=== PATIENT | female | born 1990 | race Caucasian/White ===

== ENCOUNTER → 2018-11-04 | Outpatient (CLI) | payer BC ==
--- NOTE | 2018-11-04 15:51 | US ---
EXAMINATION TYPE: US venous doppler duplex LE LT DATE OF EXAM: 11/04/2018 3:27 PM COMPARISON: NONE CLINICAL HISTORY: M79.662 pain in Left lower extremity. Pain left leg x 6 days. Patient 21 weeks preg nant. SIDE PERFORMED: Left TECHNIQUE: The lower extremity deep venous system is examined utilizing real time linear array sonog kary with graded compression, doppler sonography and color-flow sonography. VESSELS IMAGED: External Iliac Vein (EIV) Common Femoral Vein Deep Femoral Vein Greater Saphenous Vein * Femoral Vein Popliteal Vein Small Saphenous Vein * Proximal Calf Veins (* superficial vessels) Left Leg: Negative for DVT No evidence of DVT in the left lower extremity. IMPRESSION: No evidence for DVT at this time.
== END | disposition home or self-care (01) ==
LOC: RADUSWWP 14:46
PROVIDERS: ATTEND Obstetrics & Gynecology
DX: O99.89 Other specified diseases and conditions complicating pregnancy, childbirth and the puerperium (principal); M79.662 Pain in left lower leg; Z3A.21 21 weeks gestation of pregnancy

== ENCOUNTER 2019-02-15 16:12 | Emergency (ER) | payer BC, OTHER ==
[2019-02-15 16:25] VITALS: RESP 18
--- NOTE | 2019-02-15 16:46 | ED ---
Abdominal Pain HPI - General Chief Complaint: Chest Pain Stated Complaint: indigestion, 36 weeks Time Seen by Provider: 02/15/19 16:46 Source: patient, RN notes reviewed, old records reviewed Mode of arrival: ambulatory Limitations: no limitations - History of Present Illness Initial Comments: This is a 28-year-old female the ER for evaluation she presents today for evaluation of abdominal pain and . She does have nausea no vomiting no history of gallbladder disease no history of abdominal surgery that significant. No recent travel history or sick contacts, no current diarrhea. MD Complaint: abdominal pain -: hour(s) Location: periumbilical, epigastric Radiation: epigastric Migration to: no migration Severity: mild Severity scale (1-10): 3 Quality: aching Consistency: constant Improves With: nothing Worsens With: nothing Associated Symptoms: nausea - Related Data Home Medications Medication Instructions Recorded Confirmed 114/Iron A-G/Folate 1 1 tab PO DAILY 09/10/18 09/10/18 [Prenate Elite Tablet] Allergies Allergy/AdvReac Type Severity Reaction Status Date / Time bee venom protein (honey bee) Allergy Rash/Hives Verified 02/15/19 16:25 Review of Systems ROS Statement: Those systems with pertinent positive or pertinent negative responses have been documented in the HPI. ROS Other: All systems not noted in ROS Statement are negative. Past Medical History Past Medical History: No Reported History History of Any Multi-Drug Resistant Organisms: None Reported Past Surgical History: No Surgical Hx Reported Past Anesthesia/Blood Transfusion Reactions: No Reported Reaction Past Psychological History: No Psychological Hx Reported Smoking Status: Never smoker Past Alcohol Use History: None Reported Past Drug Use History: None Reported General Exam Limitations: no limitations General appearance: alert, in no apparent distress Head exam: Present: atraumatic, normocephalic, normal inspection Eye exam: Present: normal appearance, PERRL, EOMI. Absent: scleral icterus, conjunctival injection, periorbital swelling ENT exam: Present: normal exam, mucous membranes moist Neck exam: Present: normal inspection. Absent: tenderness, meningismus, lymphadenopathy Respiratory exam: Present: normal lung sounds bilaterally. Absent: respiratory distress, wheezes, rales, rhonchi, stridor Cardiovascular Exam: Present: regular rate, normal rhythm, normal heart sounds. Absent: systolic murmur, diastolic murmur, rubs, gallop, clicks GI/Abdominal exam: Present: soft, normal bowel sounds. Absent: distended, tende rness, guarding, rebound, rigid Extremities exam: Present: normal inspection, full ROM, normal capillary refill. Absent: tenderness, pedal edema, joint swelling, calf tenderness Back exam: Present: normal inspection Neurological exam: Present: alert, oriented X3, CN II-XII intact Psychiatric exam: Present: normal affect, normal mood Skin exam: Present: warm, dry, intact, normal color. Absent: rash Course Vital Signs 02/15/19 02/15/19 16:20 19:01 Temperature 98.1 F 97.7 F Pulse Rate 81 80 Respiratory 18 18 Rate Blood Pressure 160/91 133/74 O2 Sat by Pulse 98 99 Oximetry Medical Decision Making - Medical Decision Making Refusing to ER with nonspecific abdominal pain. No tenderness. Labwork is unremarkable currently. Patient can be discharged home - Lab Data Result diagrams: 02/15/19 17:10 02/15/19 17:10 Lab Results 02/15/19 02/15/19 02/15/19 Range/Units 17:10 17:10 17:10 WBC 12.4 H (3.8-10.6) k/uL RBC 4.51 (3.80-5.40) m/uL Hgb 13.4 (11.4-16.0) gm/dL Hct 39.5 (34.0-46.0) % MCV 87.6 (80.0-100.0) fL MCH 29.6 (25.0-35.0) pg MCHC 33.8 (31.0-37.0) g/dL RDW 14.5 (11.5-15.5) % Plt Count 214 (150-450) k/uL Neutrophils % 84 % Lymphocytes % 10 % Monocytes % 4 % Eosinophils % 0 % Basophils % 0 % Neutrophils # 10.5 H (1.3-7.7) k/uL Lymphocytes # 1.3 (1.0-4.8) k/uL Monocytes # 0.4 (0-1.0) k/uL Eosinophils # 0.0 (0-0.7) k/uL Basophils # 0.0 (0-0.2) k/uL Sodium 137 (137-145) mmol/L Potassium 4.0 (3.5-5.1) mmol/L Chloride 107 (98-107) mmol/L Carbon Dioxide 19 L (22-30) mmol/L Anion Gap 11 mmol/L BUN 7 (7-17) mg/dL Creatinine 0.41 L (0.52-1.04) mg/dL Est GFR (CKD-EPI)AfAm >90 (>60 ml/min/1.73 sqM) Est GFR (CKD-EPI)NonAf >90 (>60 ml/min/1.73 sqM) Glucose 102 H (74-99) mg/dL Calcium 9.6 (8.4-10.2) mg/dL Total Bilirubin 0.4 (0.2-1.3) mg/dL AST 25 (14-36) U/L ALT 26 (9-52) U/L Alkaline Phosphatase 111 (38-126) U/L Creatine Kinase 95 (30-135) U/L Total Protein 6.5 (6.3-8.2) g/dL Albumin 3.6 (3.5-5.0) g/dL Amylase 49 (30-110) U/L Lipase 51 (23-300) U/L Urine Color Yellow Urine Appearance Cloudy H (Clear) Urine pH 6.0 (5.0-8.0) Ur Specific [place] 1.021 (1.001-1.035) Urine Protein 1+ H (Negative) Urine Glucose (UA) Negative (Negative) Urine Ketones 4+ H (Negative) Urine Blood Negative (Negative) Urine Nitrite Negative (Negative) Urine Bilirubin Negative (Negative) Urine Urobilinogen <2.0 (<2.0) mg/dL Ur Leukocyte Esterase Negative (Negative) Urine RBC <1 (0-5) /hpf Urine WBC 3 (0-5) /hpf Ur Squamous Epith Cells 8 H (0-4) /hpf Amorphous Sediment Rare H (None) /hpf Urine Bacteria Rare H (None) /hpf Hyaline Casts 1 (0-2) /lpf Urine Mucus Few H (None) /hpf Disposition Clinical Impression: Abdominal pain Disposition: HOME SELF-CARE Condition: Good Instructions (If sedation given, give patient instructions): Abdominal Pain (ED), Abdominal Pain in (ED) Is patient prescribed a controlled substance at d/c from ED?: No Referrals: Neal Terry MD [Primary Care Provider] - 1-2 days
[2019-02-15] MEDS ORDERED: SODIUM CHLORIDE 0.9% 1,000 ML IV STA ×3 (16:50→17:52)
[2019-02-15] MEDS ORDERED: ONDANSETRON 4 MG/2 ML VIAL IVP STA (16:50)
[2019-02-15 17:29] LABS: Basophils % (A) 0 %; Eosinophils % (A) 0 %; HCT 39.5 % (34.0-46.0); HGB 13.4 gm/dL (11.4-16.0); Lymphocytes # (A) 1.3 k/uL (1.0-4.8); Lymphocytes % (A) 10 %; MCH 29.6 pg (25.0-35.0); MCHC 33.8 g/dL (31.0-37.0); MCV 87.6 fL (80.0-100.0); Mean Platelet Volume 8.3; Monocytes # (A) 0.4 k/uL (0-1.0); Monocytes % (A) 4 %; Neutrophils # (A) 10.5 k/uL (1.3-7.7); Neutrophils % (A) 84 %; Platelet Count 214 k/uL (150-450); RBC 4.51 m/uL (3.80-5.40); RDW 14.5 % (11.5-15.5); WBC 12.4 k/uL (3.8-10.6)
[2019-02-15 17:32] LABS: Amorphous Sediment,Urine Rare /hpf; Appearance,Urine Cloudy (Clear); Bacteria,Urine Rare /hpf; Bilirubin,Urine Negative (Negative); Blood,Urine Negative (Negative); Color,Urine Yellow; Glucose,Urine (UA) Negative (Negative); Hyaline Casts,Urine 1 /lpf (0-2); Ketones,Urine 4+ (Negative); Leukocyte Esterase,Urine Negative (Negative); Mucus,Urine Few /hpf; Nitrite,Urine Negative (Negative); Protein,Urine 1+ (Negative); RBC,Urine <1 /hpf (0-5); Specific Gravity,Urine 1.021 (1.001-1.035); Squamous Epithelial Cell,Urine 8 /hpf (0-4); Urobilinogen,Urine <2.0 mg/dL (<2.0); WBC,Urine 3 /hpf (0-5)
[2019-02-15 17:38] LABS: ALT 26 U/L (9-52); AST 25 U/L (14-36); African American GFR (CKD) >90 (>60 ml/min/1.73 sqM); Albumin 3.6 g/dL (3.5-5.0); Alkaline Phosphatase 111 U/L (38-126); Amylase 49 U/L (30-110); Anion Gap 11 mmol/L; Blood Urea Nitrogen 7 mg/dL (7-17); Calcium 9.6 mg/dL (8.4-10.2); Carbon Dioxide 19 mmol/L (22-30); Chloride 107 mmol/L (98-107); Creatine Kinase 95 U/L (30-135); Glucose 102 mg/dL (74-99); Lipase 51 U/L (23-300); Sodium 137 mmol/L (137-145); Total Bilirubin 0.4 mg/dL (0.2-1.3); Total Protein 6.5 g/dL (6.3-8.2)
[2019-02-15 19:02] VITALS: BP 133/74; PULSE 80; TEMP 97.7
== END 2019-02-15 19:02 | disposition home or self-care (01) ==
LOC: EC 16:12
DX: O99.89 Other specified diseases and conditions complicating pregnancy, childbirth and the puerperium (principal); R10.33 Periumbilical pain; R10.13 Epigastric pain; R11.0 Nausea; Z91.018 Allergy to other foods; Z53.8 Procedure and treatment not carried out for other reasons; Z3A.36 36 weeks gestation of pregnancy
CPT/HCPCS: 36415; 80053; 81001; 82150; 82550; 83690; 85025; 87086; 96360; 99285

== ENCOUNTER 2019-03-08 06:00 | Inpatient (IN) | payer BC, OTHER ==
[2019-03-08] MEDS ORDERED: CARBOPROST TROMETHAMINE 250 MCG/ML 1 ML AMP IM PRN (06:15)
[2019-03-08] MEDS ORDERED: OXYTOCIN 30 UNITS/500 ML NS 30 UNIT in SALINE 1 500ML.BAG IV SCH (06:15)
[2019-03-08] MEDS ORDERED: METHYLERGONOVINE 0.2 MG/ML 1 ML AMP IM PRN (06:15)
[2019-03-08] MEDS ORDERED: OXYTOCIN 10 UNIT/ML 1 ML VIAL IM PRN (06:15)
[2019-03-08] MEDS ORDERED: LIDOCAINE 0.5% (PF) 5 MG/ML (50 ML SDV) SQ PRN (06:15)
[2019-03-08] MEDS ORDERED: TERBUTALINE 1 MG/ML VIAL SQ PRN (06:15)
[2019-03-08 06:26] VITALS: BMI 50.3
[2019-03-08 06:43] LABS: Glucose,Whole Blood 88 mg/dL (75-99)
[2019-03-08] MEDS: LACTATED RINGERS 1,000 ML IV SCH ×4 (06:47→18:27)
[2019-03-08 06:58] LABS: Basophils # (A) 0.1 k/uL (0-0.2); Basophils % (A) 1 %; Eosinophils # (A) 0.1 k/uL (0-0.7); Eosinophils % (A) 1 %; HCT 37.1 % (34.0-46.0); HGB 12.8 gm/dL (11.4-16.0); Lymphocytes # (A) 1.9 k/uL (1.0-4.8); Lymphocytes % (A) 18 %; MCH 30.2 pg (25.0-35.0); MCHC 34.5 g/dL (31.0-37.0); MCV 87.5 fL (80.0-100.0); Monocytes # (A) 0.5 k/uL (0-1.0); Monocytes % (A) 5 %; Neutrophils # (A) 7.6 k/uL (1.3-7.7); Neutrophils % (A) 74 %; Platelet Count 202 k/uL (150-450); RBC 4.24 m/uL (3.80-5.40); RDW 13.6 % (11.5-15.5); WBC 10.4 k/uL (3.8-10.6)
--- NOTE | 2019-03-08 07:55 | P.HPOB ---
History of Present Illness H&P Date: 03/08/19 This is a 28-year-old white female 1 para 0 EDC 03/15/2019 at 39 weeks gestation. Patient presents for induction for suspected large for gestational age fetus. Ultrasound in the office is revealing measurements greater than 99th percentile, along with greater than 99% abdominal circumference. Patient has a history of gestational diabetes, blood sugar this morning 88. I've discussed with the patient and her in great detail the risk of vaginal , that the option for primary section is certainly to be considered for the potential of shoulder dystocia in the second stage of labor. They are strongly wishing a trial of labor. She denies vaginal bleeding or fluid leakage. Past medical history is unremarkable. Past surgical history is negative. Current medications vitamins daily. ALLERGIES none known. Family history significant for spinal bifida occulta. Social history patient is single, she is employed, she has never been a smoker, she denies alcohol or drug use. history is significant for blood type B positive, rubella status [facility]. VDRL testing, urine culture, hepatitis B surface antigen, HIV testing, gonorrhea and chlamydia cultures all negative. One-hour Glucola 23, patient has done doing careful home blood sugar monitoring. Group B strep cultures negative. On exam she is 5 foot 2 inches, 275 pounds, initial blood pressure elevated at 179/92, repeat blood pressures 130s over 80s. The general physical exam is wi thin normal limits. 1-2+ peripheral edema, normal reflexes. Cervix is 2-3 cm dilated, 80% effaced, -2 station, vertex presentation. Attempted artificial amniorrhexis is only productive of mucus. I will attempt was again in short order. heart rate is consistent with reactive NST, baseline 140s. Impression: 39 week intrauterine , gestational diabetes, suspected macrosomic fetus. Patient and her partner strongly wishing trial of labor, aware of the risks of labor and shoulder dystocia. Plan oxytocin per hospital protocol. I will once again attempt artificial amniorrhexis. Close maternal and surveillance. Pending progress of the first stage of labor, continued consideration for section as appropriate. Review of Systems Constitutional: Reports as per HPI Past Medical History Past Medical History: No Reported History Additional Past Medical History / Comment(s): Diet controlled gestational diabetes History of Any Multi-Drug Resistant Organisms: None Reported Past Surgical History: No Surgical Hx Reported Past Anesthesia/Blood Transfusion Reactions: No Reported Reaction Past Psychological History: No Psychological Hx Reported Smoking Status: Never smoker Past Alcohol Use History: None Reported Past Drug Use History: None Reported - Past Family History Mother Family Medical History: No Reported History Medications and Allergies Home Medications Medication Instructions Recorded Confirmed Type 114/Iron A-G/Folate 1 1 tab PO DAILY 09/10/18 03/08/19 History [Prenate Elite Tablet] Allergies Allergy/AdvReac Type Severity Reaction Status Date / Time bee venom protein (honey bee) Allergy Rash/Hives Verified 03/08/19 06:14 Exam Vital Signs Temp Pulse Resp BP Pulse Ox 03/08/19 06:13 97.6 F 91 16 179/92 97 Intake and Output 03/07/19 03/08/19 03/08/19 22:59 06:59 14:59 Other: Weight 124.738 kg See dictation under HPI please Results Result Diagrams: 03/08/19 06:42 Assessment and Plan Assessment: 39 week intrauterine , gestational diabetes, maternal obesity, macrosomia. Patient wishing trial of labor, where of the risks of shoulder dystocia. Plan: Oxytocin per hospital protocol. Close maternal and surveillance. Time with Patient: Greater than 30
[2019-03-08] MEDS ORDERED: ceFAZolin 3 GM in SODIUM CHLORIDE 0.9% 100 ML IVPB ONE (14:10)
[2019-03-08] MEDS ORDERED: CITRIC ACID-SODIUM CITRATE 15 ML CUP PO ONE (14:10)
[2019-03-08] MEDS ORDERED: ONDANSETRON 4 MG/2 ML VIAL ONE (14:34)
[2019-03-08] MEDS ORDERED: MORPHINE SULFATE (PF) 0.3 MG/0.3 ML SYR ONE (14:34)
[2019-03-08] MEDS ORDERED: NALBUPHINE 10 MG/ML (1 ML AMP) ONE (14:34)
[2019-03-08] MEDS ORDERED: OXYTOCIN 10 UNIT/ML 1 ML VIAL ONE (14:34)
[2019-03-08] MEDS ORDERED: diphenhydrAMINE 50 MG/ML 1 ML VIAL ONE (14:34)
[2019-03-08] MEDS ORDERED: KETOROLAC 30 MG/ML 1 ML VIAL ONE (14:34)
[2019-03-08] MEDS ORDERED: ONDANSETRON 4 MG/2 ML VIAL IVP PRN ×2 (15:12→15:41)
[2019-03-08] MEDS ORDERED: diphenhydrAMINE 50 MG/ML 1 ML VIAL IVP PRN ×3 (15:12→15:41)
[2019-03-08] MEDS ORDERED: NALBUPHINE 10 MG/ML (1 ML AMP) IV PRN (15:12)
[2019-03-08] MEDS ORDERED: HYDROmorphone 1 MG/ML 1 ML SYRINGE IVP PRN (15:12)
[2019-03-08] MEDS ORDERED: NALOXONE 0.4 MG/ML 1 ML VIAL IV PRN ×2 (15:12→15:41)
[2019-03-08] MEDS ORDERED: KETOROLAC 30 MG/ML 1 ML VIAL IVP PRN (15:12)
[2019-03-08] MEDS ORDERED: diphenhydrAMINE 50 MG CAP PO PRN (15:41)
[2019-03-08] MEDS ORDERED: MEASLES-MUMPS-RUBELLA VACC/PF 12,500 UNIT/0.5 ML VIAL SQ ONE (15:41)
[2019-03-08] MEDS ORDERED: METOCLOPRAMIDE 5 MG/ML 2 ML VIAL IVP PRN (15:41)
[2019-03-08] MEDS ORDERED: ACETAMINOPHEN TAB 325 MG TAB PO PRN (15:41)
[2019-03-08] MEDS ORDERED: diphenhydrAMINE 25 MG CAP PO PRN (15:41)
[2019-03-08] MEDS ORDERED: ZOLPIDEM 5 MG TAB PO PRN (15:41)
[2019-03-08] MEDS ORDERED: HYDROcodone/APAP 5-325MG 1 EACH TAB PO PRN (15:41)
--- NOTE | 2019-03-08 15:41 | P.OP ---
Date of Procedure: 03/08/19 Preoperative Diagnosis: Suspected macrosomia, gestational diabetes, arrest of dilatation. Postoperative Diagnosis: Same, 10 lbs. 2 oz. female , 4580 g, nuchal cord 1 Procedure(s) Performed: Primary low transverse section Anesthesia: spinal Surgeon: Roxanna Jack Chef #1: Hector Faith Estimated Blood Loss (ml): 500 IV fluids (ml): 1,000 Urine output (ml): 100 Pathology: other (placenta) Condition: stable Disposition: PACU Indications for Procedure: Arrest of dilatation, non-engaged head, suspected macrosomia Operative Findings: 10 lbs. 2 oz. female , 4580 g, nuchal cord 1. Normal-appearing tubes and ovaries bilaterally. Description of Procedure: Patient is brought to the operating suite where a spinal with Duramorph is placed without difficulty. She's placed in the dorsal supine position with left lateral uterine displacement after prepping of the abdomen, vagina, and perineal bodies. Conti catheter placed to direct drainage. 3 g of Ancef given. The appropriate timeout is performed to assure proper patient and procedural identification. Analgesia is checked and noted to be adequate. A low transverse skin incision is made in this is carried down through the subcutaneous tissue which is approximately 8 cm in depth. Fascia is identified, isolated, and scored bilaterally with curved Hilario scissors. Peritoneum is next identified and incised, there is no bowel or bladder involvement. The disposable ring retractor is placed for very good visualization and exposure. A low transverse uterine incision is made. This is extended bluntly. The 's head is delivered occiput anterior. There is a nuchal cord 1 that is reduced. The shoulders are gently delivered through the incision, patient is officially delivered of a liveborn female at 08/14/2002 hours. Umbilical cord is doubly clamped and ligated. is handed to waiting lithographic press operator where scores of 8 and 9 at one and 5 minutes respectively are given. The placenta delivers manually, it is inspected and noted to be intact with trivascular cord at 08/14/2003 hours. The uterus is then externalized and massaged. Oxytocin is given. Uterus is wiped clean with a sterile sponge to avoid any retained products of conception. The incision is grasped with Santos clamps. The uterus is closed in a two-step fashion. First layer is running locking with 0 Vicryl. Second layer is imbricated with 0 Vicryl. Excellent reapproximation is noted. Tubes and ovaries appear normal to inspection. Abdomen is suctioned with suction on guard and the uterus is gently placed back into the abdominal cavity. Bilateral gutters are inspected and cleaned. The peritoneum is allowed to close by secondary intention. The fascia is closed in a running fashion using 0 Vicryl suture. Subcutaneous tissue is irrigated, noted to be clean and dry. It is reapproximated with 2-0 Vicryl in a running stitch. 4-0 undyed Monocryl issues for final skin closure in a subcuticular manner. Steri-Strips and Mastisol are applied to the wound. Dressing is placed on the abdomen. The uterus is massaged for a small amount of residual blood. Conti is noted to be draining clear urine. Total estimated blood loss 500 mL, fluid replacement in the operating room 100 mL's. Patient is brought back to recovery room in stable condition. She is allowed to begin the bonding experience with her infant and family. weighs 10 lbs. 2 oz. or 4580 g. Blood sugars will be checked appropriately.
[2019-03-08] MEDS: SENNOSIDES-DOCUSATE SODIUM 1 EACH TAB PO SCH (21:24)
[2019-03-08] MEDS: KETOROLAC 30 MG/ML 1 ML VIAL IVP PRN (21:35)
[2019-03-09 07:03] LABS: Basophils # (A) 0.1 k/uL (0-0.2); Basophils % (A) 1 %; Eosinophils # (A) 0.1 k/uL (0-0.7); Eosinophils % (A) 1 %; HCT 34.5 % (34.0-46.0); HGB 11.3 gm/dL (11.4-16.0); Lymphocytes % (A) 17 %; MCH 29.9 pg (25.0-35.0); MCHC 32.9 g/dL (31.0-37.0); Mean Platelet Volume 8.3; Monocytes # (A) 0.4 k/uL (0-1.0); Monocytes % (A) 4 %; Neutrophils # (A) 9.1 k/uL (1.3-7.7); Neutrophils % (A) 77 %; Platelet Count 193 k/uL (150-450); RBC 3.79 m/uL (3.80-5.40); RDW 15.2 % (11.5-15.5); WBC 11.7 k/uL (3.8-10.6)
--- NOTE | 2019-03-09 07:32 | P.PN ---
Subjective Progress Note Date: 03/09/19 Principal diagnosis: Postoperative day #1 Slept well. Pain well managed. No complaints. Objective - Vital Signs Vital signs: Vital Signs Temp 97.7 F 03/09/19 04:00 Pulse 83 03/09/19 04:00 Resp 16 03/09/19 06:00 BP 117/56 03/09/19 04:00 Pulse Ox 98 03/09/19 04:00 Intake & Output 03/08/19 03/09/19 03/09/19 18:59 06:59 18:59 Intake Total 1100 Output Total 600 Balance 1100 -600 Intake: IV 1000 Lactated Ringers 1,000 ml 1000 @ 125 mls/hr IV .Q8H MELY Rx#:[id number] Intake, IV Titration 100 Amount ceFAZolin 3 gm In Sodium 100 Chloride 0.9% 100 ml @ 200 mls/hr IVPB ONCE ONE Rx#:[id number] Output: Urine 600 - Constitutional General appearance: Present: morbidly obese - EENT Eyes: Present: PERRLA ENT: Present: hearing grossly normal - Neck Thyroid: negative: normal size - Respiratory Respiratory: bilateral: CTA - Cardiovascular Rhythm: regular - Gastrointestinal General gastrointestinal: Present: normal bowel sounds - Integumentary Integumentary: Present: normal - Neurologic Neurologic: Present: CNII-XII intact - Musculoskeletal Musculoskeletal: Present: gait normal, strength equal bilaterally - Psychiatric Psychiatric: Present: A&O x's 3, appropriate affect, intact judgment & insight - Labs CBC & Chem 7: 03/09/19 06:25 Labs: Abnormal Lab Results - Last 24 Hours (Table) 03/09/19 Range/Units 06:25 WBC 11.7 H (3.8-10.6) k/uL RBC 3.79 L (3.80-5.40) m/uL Hgb 11.3 L (11.4-16.0) gm/dL Neutrophils # 9.1 H (1.3-7.7) k/uL Assessment and Plan Assessment: doing well post operative day #1 Plan: Advance diet and activity. Likely discharge home tomorrow Time with Patient: Less than 30
[2019-03-09] MEDS: SENNOSIDES-DOCUSATE SODIUM 1 EACH TAB PO SCH ×2 (07:44→19:30)
[2019-03-09] MEDS: KETOROLAC 30 MG/ML 1 ML VIAL IVP PRN (07:45)
--- NOTE | 2019-03-09 09:32 | P.PN ---
Progress Note - Text Progress Note Date: 03/09/19 Patient without complaints. Ambulating without weakness or paresthesia. Pruritis controlled. Pain controlled. A/P POD#1 c-sec with duramorph - doing well
[2019-03-09] MEDS: IBUPROFEN 600 MG TAB PO PRN (19:28)
[2019-03-09 20:40] VITALS: RESP 16
[2019-03-10] MEDS: IBUPROFEN 600 MG TAB PO PRN (08:31)
[2019-03-10] MEDS: SENNOSIDES-DOCUSATE SODIUM 1 EACH TAB PO SCH (08:33)
--- NOTE | 2019-03-10 08:36 | P.DS ---
Providers Date of admission: 03/08/19 06:06 Expected date of discharge: 03/10/19 Attending physician: Roxanna Jack Primary care physician: Neal Terry - Discharge Diagnosis(es) (1) S/P section Current Visit: Yes Status: Acute Hospital Course: The patient is a 28-year-old 1 para 0 admitted at 39-0/7 weeks by good dating parameters perches admitted for induction secondary to an LGA fetus with gestational diabetes during the . On labor and delivery, she had Pitocin started and underwent artificial rupture of membranes for clear fluid. She made minimal progress throughout the morning and early afternoon and was counseled and taken for primary low-transverse section at which time she was delivered of a viable 10 lbs. 2 oz. baby girl with Apgars of 8 at 1 minute and 9 at 5 minutes. Her postoperative course was unremarkable with vital signs remained stable and her temperature was afebrile throughout. She was de emed stable for discharge on postoperative day #2 was discharged home to follow- up in the office in 6 weeks' time routinely. Discharge instructions included calling for any significantly increased bleeding or foul-smelling lochia, significantly increased fever abdominal pain, perineal complaints, breast complaints, incisional complaints, or anything else that concerned her. She is additionally instructed to have nothing in the vagina for at least 6 weeks time to include intercourse and to abstain from any heavy lifting over the same period of time. She was last instructed to do no driving until off of all pain medications or 2 weeks' time, whichever came first. She understood all of her instructions and agrees to follow up as noted above. Maternal blood type is B+ and rubella status is nonimmune. She therefore was to receive the MMR vaccination prior to discharge. Discharge hemoglobin and hematocrit were 11.3 and 34.5 respectively. Procedures: #1. Pitocin induction #2. Gestational diabetes #3. Arrest of dilation #4. Primary low-transverse section Patient Condition at Discharge: Stable Plan - Discharge Summary Discharge Rx Participant: No New Discharge Prescriptions: No Action 114/Iron A-G/Folate 1 [Prenate Elite Tablet] 1 tab PO DAILY Discharge Medication List 114/Iron A-G/Folate 1 [Prenate Elite Tablet] 1 tab PO DAILY 09/10/18 [History] Follow up Appointment(s)/Referral(s): Roxanna Jack MD [STAFF PHYSICIAN] - 2 Weeks Discharge Disposition: HOME SELF-CARE
[2019-03-10 09:46] VITALS: PULSE 81; TEMP 97.1
[2019-03-10 14:53] VITALS: BP 136/80
== END 2019-03-10 14:15 | disposition home or self-care (01) | DRG 788 ==
LOC: 4FBP 06:06
PROVIDERS: ADMIT Obstetrics & Gynecology; ATTEND Obstetrics & Gynecology
PROC: 10D00Z1 Extraction of Products of Conception, Low, Open Approach (ICD-10-PCS; principal; 2019-03-08 06:00)
DX: O36.63X0 Maternal care for excessive fetal growth, third trimester, not applicable or unspecified (principal); O99.214 Obesity complicating childbirth; E66.01 Morbid (severe) obesity due to excess calories; O62.0 Primary inadequate contractions; O69.81X0 Labor and delivery complicated by cord around neck, without compression, not applicable or unspecified; O24.420 Gestational diabetes mellitus in childbirth, diet controlled; O99.72 Diseases of the skin and subcutaneous tissue complicating childbirth; L29.9 Pruritus, unspecified; Z37.0 Single live birth; Z3A.39 39 weeks gestation of pregnancy
CPT/HCPCS: 85025; 86850; 86900; 86901; 88307; 90707; 94760

== ENCOUNTER 2023-05-14 06:28 | Inpatient (IN) | payer BC, OTHER ==
[2023-05-11 14:19] VITALS: BMI 46.0
[2023-05-14] MEDS ORDERED: miSOPROStoL 200 MCG TAB PO PRN (10:20)
[2023-05-14] MEDS ORDERED: TRANEXAMIC 1,000 MG/100ML-NACL 1,000 MG in EMPTY BAG 1 BAG IV PRN (10:20)
[2023-05-14] MEDS ORDERED: OXYTOCIN 10 UNIT/ML 1 ML VIAL IM PRN (10:20)
[2023-05-14] MEDS ORDERED: CITRIC ACID-SODIUM CITRATE 15 ML CUP PO ONE (10:20)
[2023-05-14] MEDS ORDERED: CARBOPROST TROMETHAMINE 250 MCG/ML 1 ML AMP IM PRN (10:20)
[2023-05-14] MEDS ORDERED: METHYLERGONOVINE 0.2 MG/ML 1 ML AMP IM PRN (10:20)
[2023-05-14 10:34] LABS: Glucose,Whole Blood 98 mg/dL (70-110)
[2023-05-14 10:54] LABS: Basophils % (A) 0 %; Eosinophils % (A) 0 %; HCT 36.6 % (34.0-46.0); Lymphocytes # (A) 1.8 k/uL (1.0-4.8); Lymphocytes % (A) 21 %; MCH 27.4 pg (25.0-35.0); MCHC 32.9 g/dL (31.0-37.0); MCV 83.2 fL (80.0-100.0); Mean Platelet Volume 10.1; Monocytes # (A) 0.6 k/uL (0-1.0); Monocytes % (A) 6 %; Neutrophils # (A) 6.2 k/uL (1.3-7.7); Neutrophils % (A) 71 %; Platelet Count 189 k/uL (150-450); RDW 13.6 % (11.5-15.5); WBC 8.8 k/uL (3.8-10.6)
[2023-05-14] MEDS: LACTATED RINGERS 1,000 ML IV SCH ×2 (10:55→11:30)
[2023-05-14] MEDS ORDERED: NALBUPHINE 10 MG/ML (10 ML MDV) ONE (11:54)
[2023-05-14] MEDS ORDERED: MORPHINE SULFATE (PF) 0.3 MG/0.3 ML SYR ONE (11:54)
[2023-05-14] MEDS ORDERED: PHENYLEPHRINE-0.9% NACL SYG 1,000 MCG/10 ML SYRINGE ONE (11:54)
[2023-05-14] MEDS ORDERED: ONDANSETRON 4 MG/2 ML VIAL ONE (11:54)
[2023-05-14] MEDS ORDERED: KETOROLAC 30 MG/ML 1 ML VIAL ONE (11:54)
[2023-05-14] MEDS ORDERED: OXYTOCIN 30 UNITS/500 ML NS BAG IV ONE (11:54)
--- NOTE | 2023-05-14 13:00 | P.HPOB ---
History of Present Illness H&P Date: 05/14/23 Chief Complaint: Scheduled repeat section with bilateral salpingectomy Mr. Cardenas is a 32-year-old at 38 weeks and 6 days with EDC of 05/22/2023 by 8 week ultrasound who presents today for repeat section with bilateral salpingectomy. The has been complicated by pre- gestational diabetes diagnosed on early 3 hour glucose tolerance test. The patient has been co-managed by maternal medicine, although she has had periods of noncompliance with calling in her blood sugars. The blood sugars per the patient have been seemingly well controlled. The fetus was also inspected to be large for gestational age at 32 week ultrasound during which time the fetus measured in the 97th percentile for growth. The patient also has chronic hypertension for which she was started on Procardia 30 mg daily in the last weeks of . The patient has been undergoing surveillance with nonstress tests and growth ultrasounds which have been within normal limits. Obstetric history: 1 [facility] Maternal work-up: Blood type B positive, antibody negatie, rubella immune, HBsAg negative, VDRL non-reactive, HIV negative, gonorrhea negative, chlamydia negative, GBS negative. Past medical history: cHTN Past surgical history: C/S x1 Past Medical History Past Medical History: No Reported History Additional Past Medical History / Comment(s): gestational diabetes History of Any Multi-Drug Resistant Organisms: None Reported Past Surgical History: Section Past Anesthesia/Blood Transfusion Reactions: No Reported Reaction Past Psychological History: No Psychological Hx Reported Smoking Status: Never smoker Past Alcohol Use History: None Reported Past Drug Use History: None Reported - Past Family History Mother Family Medical History: No Reported History Medications and Allergies Home Medications Medication Instructions Recorded Confirmed Type NIFEdipine XL [Procardia Xl] 30 mg PO DAILY 05/11/23 05/14/23 History metFORMIN HCL 500 mg PO HS 05/11/23 05/14/23 History Allergies Allergy/AdvReac Type Severity Reaction Status Date / Time bee venom protein (honey bee) Allergy Rash/Hives Verified 05/14/23 10:18 Exam Vital Signs Temp Pulse Resp BP Pulse Ox 05/14/23 10:13 97.1 F L 86 18 159/79 98 Intake and Output 05/13/23 05/14/23 05/14/23 22:59 06:59 14:59 Other: # Voids 1 Weight 114.305 kg This physical exam is performed. This is a in no apparent distress. Breathing is non-labored. Abdomen is gravid and non-tender. Extremities are non-tender and non-edematous. heart tones are reactive and reassuring on non-stress test and tocometer is not graphing contractions. Results Result Diagrams: 05/14/23 10:30 Assessment and Plan Assessment: 32 year old at 38 weeks and 6 days presenting for repeat sec tion with bilateral salpingectomy, complicated by A1GDM and cHTN Plan: Admit, nothing by mouth, maintenance IV fluids, section protocol with IV antibiotics Time with Patient: Less than 30
[2023-05-14] MEDS ORDERED: METOCLOPRAMIDE 5 MG/ML 2 ML VIAL IVP PRN (13:06)
[2023-05-14] MEDS ORDERED: diphenhydrAMINE 50 MG CAP PO PRN (13:06)
[2023-05-14] MEDS ORDERED: diphenhydrAMINE 50 MG/ML 1 ML VIAL IVP PRN ×2 (13:06)
[2023-05-14] MEDS ORDERED: ONDANSETRON 4 MG/2 ML VIAL IVP PRN (13:06)
[2023-05-14] MEDS ORDERED: NALOXONE 0.4 MG/ML 1 ML VIAL IV PRN (13:06)
[2023-05-14] MEDS ORDERED: SIMETHICONE 80 MG CHEWABLE PO PRN (13:06)
[2023-05-14] MEDS ORDERED: LANOLIN CREAM 5 GM TUBE TOPICAL PRN (13:06)
[2023-05-14] MEDS ORDERED: diphenhydrAMINE 25 MG CAP PO PRN (13:06)
[2023-05-14] MEDS ORDERED: ZOLPIDEM 5 MG TAB PO PRN (13:06)
--- NOTE | 2023-05-14 13:06 | P.OP ---
Date of Procedure: 05/14/23 Preoperative Diagnosis: 1. Term IUP at 38 weeks and 6 days 2. Diet-controlled gestational diabetes 3. Chronic Hypertension 4. History of prior section 5. Large for gestational age fetus 6. Desires permanent sterilization Postoperative Diagnosis: Same Procedure(s) Performed: Repeat Section with Bilateral Salpingectomy Implants: None Anesthesia: spinal Surgeon: Sharon Parnell Nailing Machine Operator Automatic #1: Cyndee Fam Estimated Blood Loss (ml): 530 IV fluids (ml): 700 Urine output (ml): 200 Pathology: none sent Condition: stable Disposition: floor Indications for Procedure: This is a 32-year-old 001 at 38 weeks and 6 days with a complicated by gestational diabetes diet controlled and chronic hypertension on antihypertensives who presents today for repeat section. The risks, benefits, and alternatives to section were discussed with the patient including risk of bleeding, infection, damage to surrounding structures includ ing bladder/bowels/ureters, and post-operative VTE. The patient understands these risks and desires to proceed with section. Operative Findings: Colorless amniotic fluid. in right occiput transverse presentation, weighing 10 pounds and 9 ounces (4780 grams), with apgars of 9 and 9 at one and five minutes respectively. Normal appearing uterus, bilateral fallopian tubes, and ovaries. Moderate adhesive disease in the pelvis. Description of Procedure: The patient was taken to the operating room where spinal anesthesia was found to be adequate. 2 grams of Ancef were given for infection prophylaxis. She was prepared and draped in the dorsal supine position with a leftward tilt. A Pfannenstiel skin incision was made with the scalpel. The incision was carried down to the fascia with a bovie. The fascia was incised and extended laterally with Hilario scissors. The superior aspect of the fascia was grasped with Curry clamps. The underlying rectus muscle was dissected off sharply with Hilario scissors. In a similar fashion, the inferior aspect of the fascia was elevated with Curry clamps and the rectus muscle and pyramidalis were dissected off. Excellent hemostasis was achieved with the bovie. The rectus muscle was in the midline down to the level of the pubic symphysis. Pre- peritoneal fatty tissue was bluntly dissected to expose the peritoneum. The peritoneum was found to be free of adherent bowel and entered sharply with Hilario scissors. The peritoneal incision was extended superiorly and inferiorly to the bladder reflection with good visualization of the bladder. The bladder blade was inserted and vesicouterine peritoneum was identified. Intraabdominal survey revealed scant, clear peritoneal fluid and the thinned-out lower uterine segment. The bladder blade was repositioned to keep the bladder out of the operative field. The lower uterine segment was incised with a scalpel. The amniotic sac was ruptured with an Allis clamp and clear fluid was noted. The uterine incision was extended bluntly with lateral and upward traction. The fetus was in right occiput transverse position. The head was elevated out of the pelvis with special attention paid to avoid using the uterine incision as a fulcrum. Gentle fundal pressure was applied once the head was brought into the incision. The was delivered with no difficulty. The mouth and nose were suctioned with a bulb. The cord was clamped and cut. was noted to be spontaneously crying. The infant was handed off to the electrician crane maintenance. IV oxytocin was initiated to facilitate uterine contractions. The placenta was delivered intact with manual massage of uterine fundus. The uterus was then exteriorized and the inside of the uterus was gently wiped with a lap sponge to assure complete removal of placental membranes. The uterine incision was closed with a 0-Polysorb suture in a running locked fashion. A second imbricating layer of 0- Polysorb was placed along the incision. The ovaries and tubes were found to be normal. Bilateral fallopian tubes were cauterized and cut from the fimbriated end to the level of the uterine cornua with the LigaSure device. The uterus and ovaries were then gently returned to the abdominal cavity. The blood clots and fluid were wiped out of the abdomen and pelvis with moist laparotomy sponges. The pelvis was copiously suction irrigated.The uterine incision was reinspected and excellent hemostasis was noted. The fascial layer was closed with a 0-Vicryl suture. The subcutaneous tissue was reapproximated with 2-0 Plain Gut. The skin was closed with 4-0 Monocryl in a subcuticular fashion. The patient tolerated the procedure well. All the counts were correct times two. The patient was taken to the recovery room in a stable condition.
[2023-05-14] MEDS ORDERED: LACTATED RINGERS 1,000 ML IV SCH (13:15)
[2023-05-14] MEDS: ACETAMINOPHEN TAB 500 MG TAB PO SCH ×2 (16:06→22:01)
[2023-05-14] MEDS: KETOROLAC 15 MG/ML 1 ML VIAL IVP SCH (18:13)
[2023-05-15] MEDS: IBUPROFEN 600 MG TAB PO SCH ×3 (05:04→17:58)
[2023-05-15] MEDS: KETOROLAC 15 MG/ML 1 ML VIAL IVP SCH (06:02)
[2023-05-15 06:59] LABS: Basophils % (A) 0 %; Eosinophils % (A) 0 %; HCT 32.6 % (34.0-46.0); Lymphocytes # (A) 1.8 k/uL (1.0-4.8); Lymphocytes % (A) 18 %; MCH 28.2 pg (25.0-35.0); MCHC 33.8 g/dL (31.0-37.0); MCV 83.5 fL (80.0-100.0); Mean Platelet Volume 10.7; Monocytes # (A) 0.4 k/uL (0-1.0); Monocytes % (A) 4 %; Neutrophils # (A) 7.4 k/uL (1.3-7.7); Neutrophils % (A) 76 %; Platelet Count 178 k/uL (150-450); RBC 3.91 m/uL (3.80-5.40); RDW 13.6 % (11.5-15.5); WBC 9.8 k/uL (3.8-10.6)
--- NOTE | 2023-05-15 07:17 | P.PN ---
Progress Note - Text Progress Note Date: 05/15/23 (8041) Anesthesia Postop day 1 Subjective: Status Post section with Duramorph. Patient seen and examined. Doing well without complaint. VAS 0. No nausea or vomiting. Mild pruritus tolerable.. Denies fever. Gross lower extremity strength intact. Without apparent anesthetic complications. Objective: Vital signs reviewed Heart: Regular Rate Lungs: Good chest excursion Abdomen: Appears nondistended Assessment: Status post with Duramorph postop day 1 Plan: Continue current care with your medical management. Anticipated and the Duramorph section around time today. You may see increased pain needs around this time.
[2023-05-15] MEDS: SENNOSIDES-DOCUSATE SODIUM 1 EACH TAB PO SCH ×2 (07:45→07:46)
[2023-05-15] MEDS: ACETAMINOPHEN TAB 500 MG TAB PO SCH ×4 (07:46→20:45)
[2023-05-15] MEDS ORDERED: DEXTROSE 50% SYRINGE 50 ML IVP PRN ×2 (09:00)
--- NOTE | 2023-05-15 09:16 | P.PNOBGPC ---
Subjective - Subjective Principal diagnosis: s/p repeat section with bilateral salpingectomy Interval history: The patient is doing well this morning and had no acute events overnight. She has no complaints this morning. She reports minimal lochia, passing flatus, voiding without difficulty, ambulating, and eating/drinking without nausea or vomiting. She is her without difficulty. She denies chest pain, shortness of breathing, fevers, or chills overnight. She denies pain or swelling in the legs. Patient reports: Reports appetite normal, Reports voiding normally, Reports pain well controlled, Reports ambulating normally : doing well, nursing well Objective - Vital Signs Latest vital signs: Vital Signs Temp Pulse Resp BP Pulse Ox 05/15/23 08:00 97.9 F 78 18 135/81 96 05/15/23 04:00 97.8 F 76 16 123/77 96 05/15/23 00:00 98.2 F 72 16 133/84 96 05/14/23 20:00 97.6 F 86 18 147/84 95 05/14/23 15:59 98 F 68 18 139/80 05/14/23 14:57 64 18 141/74 05/14/23 14:27 67 18 137/78 05/14/23 13:54 78 18 131/60 99 05/14/23 13:42 98 F 83 18 138/65 05/14/23 13:26 84 18 133/73 98 05/14/23 13:12 90 18 135/63 97 05/14/23 12:57 95.7 F L 75 18 145/70 98 05/14/23 10:13 97.1 F L 86 18 159/79 98 Intake and Output 05/14/23 05/15/23 05/15/23 22:59 06:59 14:59 Output Total 600 Balance -600 Output: Urine 600 Other: # Voids 1 - Exam Extremities: Present: normal Abdomen: Present: normal appearance, soft Incision: Present: normal, dry, intact Uterus: Present: normal, firm - Labs Labs: Abnormal Lab Results - Last 24 Hours (Table) 05/15/23 Range/Units 05:54 Hgb 11.0 L (11.4-16.0) gm/dL Hct 32.6 L (34.0-46.0) % Assessment and Plan Assessment: 32 year old now POD#1 s/p repeat section with bilateral salpingectomy Plan: 1. Postoperative. Patient meeting all postoperative milestones appropriately. 2. Gestational diabetes. Check blood sugars today. Will need 2 hour GTT at 6 weeks . 3. Chronic hypertension. BPs have been normotensive to mild-range. Asymptomatic. 4. Female . Doing well at bedside, nursing well. Dispo: Anticipate discharge home tomorrow.
[2023-05-15 12:53] LABS: Glucose,Whole Blood 110 mg/dL (70-110)
[2023-05-15 17:41] LABS: Glucose,Whole Blood 100 mg/dL (70-110)
[2023-05-16] MEDS: IBUPROFEN 600 MG TAB PO SCH ×2 (00:42→06:44)
[2023-05-16] MEDS: ACETAMINOPHEN TAB 500 MG TAB PO SCH ×2 (04:19→10:12)
[2023-05-16] MEDS: SENNOSIDES-DOCUSATE SODIUM 1 EACH TAB PO SCH ×2 (06:42→08:05)
[2023-05-16 07:40] LABS: Glucose,Whole Blood 96 mg/dL (70-110)
[2023-05-16 07:46] VITALS: BP 144/80; PULSE 78; RESP 17; TEMP 97.8
--- NOTE | 2023-05-16 09:29 | P.DS ---
Providers Date of admission: 05/14/23 09:59 Expected date of discharge: 05/16/23 Attending physician: Sharon Parnell MD Primary care physician: Stated None - Discharge Diagnosis(es) (1) Chronic hypertension affecting Current Visit: Yes Status: Acute (2) Status post bilateral salpingectomy Current Visit: Yes Status: Acute (3) Status post repeat low transverse section Current Visit: Yes Status: Acute (4) Gestational diabetes Current Visit: No Status: Acute (5) Large for gestational age fetus Current Visit: No Status: Acute (6) Obesity Current Visit: No Status: Acute Hospital Course: This is a 32 year old 2 now para 2 woman who is admitted at 38-6/7 weeks' gestation for repeat low transverse section with bilateral salpingectomy. has been complicated by pre-gestational diabetes as well as chronic hypertension. Please see the admission history and physical for details. The patient was admitted and went to the operating room where she underwent an uncomplicated repeat low transverse section with bilateral salpingectomy. Findings at the time of surgery were significant for female infant weighing 10 lbs. 9 oz., 4780 g with Apgars of 9 at 1 minute and 9 at 5 minutes. There was also moderate adhesive disease in the maternal pelvis. The patient's postoperative course was unremarkable. By postoperative day #1 she was ambulating and voiding without difficulty and tolerating a general diet. Her blood pressures were mainly in the 130s over 80s post delivery without any antihypertensives. By day #2 she continued to do well. Her incision was well healing and she had minimal lochia. She is ambulating and voiding without difficulty and tolerating a general diet. Her pain was well-controlled with ibuprofen and Tylenol. She is therefore discharged home with close postoperative follow-up for blood pressure and blood sugar monitoring. Patient Condition at Discharge: Good Plan - Discharge Summary Discharge Rx Participant: No New Discharge Prescriptions: New Ibuprofen [Motrin] 600 mg PO Q6HR PRN #30 tab PRN Reason: Mild Pain (Scale 1 To 3) Acetaminophen Tab [Tylenol] 650 mg PO Q6H PRN #30 tab PRN Reason: Mild Pain (Scale 1 To 3) Continue metFORMIN HCL 500 mg PO HS NIFEdipine XL [Procardia XL] 30 mg PO DAILY Discharge Medication List NIFEdipine XL [Procardia XL] 30 mg PO DAILY 05/11/23 [History] metFORMIN HCL 500 mg PO HS 05/11/23 [History] Acetaminophen Tab [Tylenol] 650 mg PO Q6H PRN #30 tab 05/15/23 [Rx] Ibuprofen [Motrin] 600 mg PO Q6HR PRN #30 tab 05/15/23 [Rx] Follow up Appointment(s)/Referral(s): Sharon Parnell MD [STAFF PHYSICIAN] - 2 Weeks Activity/Diet/Wound Care/Special Instructions: Instructions 1. Do not begin any exercise program for 3 weeks. 2. Do not resume sexual relations for 6 weeks or longer if uncomfortable. 3. You may take tub baths or showers at any time. 4. You may use tampons if desired after 6 weeks. 5. Keep any areas repaired with stitches clean and dry. 6. If you are not nursing, wear a good fitting, supportive bra during the day and limit fluid intake for at least 1 week to prevent breast engorgement. 7. Call the office, , within the next week to make appointment for your 6 week checkup if it has not already been made. 8. Report any of the following occurrences to the doctor promptly: a. Heavy, excessive bleeding b. Chills, fever c. Burning or frequency of urination d. Pain or redness and breasts if nursing e. Increasing pain or swelling of vulva (stitches). In addition to the above instructions, the following additional should be followed: 1. No heavy lifting or straining (exercising) until after 6 week checkup. 2. Keep abdominal incision clean and dry: You may wear a dressing if more comfortable. 3. Make office appointment for 2 weeks after delivery date. Discharge Disposition: HOME SELF-CARE
== END 2023-05-16 10:45 | disposition home or self-care (01) | DRG 539 ==
LOC: 4FBP 09:59
PROVIDERS: ADMIT Obstetrics & Gynecology; ATTEND Obstetrics & Gynecology
PROC: 10D00Z1 Extraction of Products of Conception, Low, Open Approach (ICD-10-PCS; principal; 2023-05-14 11:54)
PROC: 0UB70ZZ Excision of Bilateral Fallopian Tubes, Open Approach (ICD-10-PCS; principal; 2023-05-14 11:54)
DX: O24.415 Gestational diabetes mellitus in pregnancy, controlled by oral hypoglycemic drugs (principal); O10.92 Unspecified pre-existing hypertension complicating childbirth; O36.63X0 Maternal care for excessive fetal growth, third trimester, not applicable or unspecified; O99.214 Obesity complicating childbirth; O34.211 Maternal care for low transverse scar from previous cesarean delivery; O32.2XX0 Maternal care for transverse and oblique lie, not applicable or unspecified; N73.6 Female pelvic peritoneal adhesions (postinfective); Z30.2 Encounter for sterilization; Z37.0 Single live birth; Z3A.38 38 weeks gestation of pregnancy; Z79.84 Long term (current) use of oral hypoglycemic drugs; Z79.899 Other long term (current) drug therapy; Z91.199 Patient's noncompliance with other medical treatment and regimen due to unspecified reason; Z28.310 Unvaccinated for COVID-19; Z28.21 Immunization not carried out because of patient refusal
CPT/HCPCS: 85025; 86850; 86900; 86901; 88302

== ENCOUNTER 2023-05-23 10:54 | Emergency (ER) | payer OTHER ==
[2023-05-23] MEDS ORDERED: dexAMETHasone 2 MG TAB PO STA (11:17)
[2023-05-23] MEDS ORDERED: dexAMETHasone 4 MG TAB PO STA (11:17)
--- NOTE | 2023-05-23 11:18 | ED ---
Skin/Abscess/FB HPI - General Chief complaint: Skin/Abscess/Foreign Body Stated complaint: recheck Time Seen by Provider: 05/23/23 11:01 Source: patient, RN notes reviewed Mode of arrival: ambulatory Limitations: no limitations - History of Present Illness Initial comments: 32-year-old female presents emergency Department chief complaint rash. Patient reaction to Steri-Strips around her section. Patient states that has been getting better but wanted to make sure she didn't have any accompanying fractures incision is closed. Steri-Strips have been removed. Patient has been using triple antibiotic ointment, cortisone cream which seems to be working the best. Patient denies any other associated symptoms. No fevers chills no purulent drainage - Related Data Home Medications Medication Instructions Recorded Confirmed NIFEdipine XL [Procardia XL] 30 mg PO DAILY 05/11/23 05/14/23 metFORMIN HCL 500 mg PO HS 05/11/23 05/14/23 Previous Rx's Medication Instructions Recorded Acetaminophen Tab [Tylenol] 650 mg PO Q6H PRN #30 tab 05/15/23 Ibuprofen [Motrin] 600 mg PO Q6HR PRN #30 tab 05/15/23 Triamcinolone 0.1% Cream [Kenalog 1 applicatio TOPICAL BID #30 gram 05/23/23 0.1% Cream] Allergies Allergy/AdvReac Type Severity Reaction Status Date / Time bee venom protein (honey bee) Allergy Rash/Hives Verified 05/23/23 11:00 Review of Systems ROS Statement: Those systems with pertinent positive or pertinent negative responses have been documented in the HPI. ROS Other: All systems not noted in ROS Statement are negative. Past Medical History Past Medical History: No Reported History Additional Past Medical History / Comment(s): gestational diabetes History of Any Multi-Drug Resistant Organisms: None Reported Past Surgical History: Section Past Anesthesia/Blood Transfusion Reactions: No Reported Reaction Past Psychological History: No Psychological Hx Reported Smoking Status: Never smoker Past Alcohol Use History: None Reported Past Drug Use History: None Reported - Past Family History Mother Family Medical History: No Reported History General Exam Limitations: no limitations General appearance: alert, in no apparent distress Head exam: Present: atraumatic, normocephalic, normal inspection Eye exam: Present: normal appearance, PERRL, EOMI. Absent: scleral icterus, conjunctival injection, periorbital swelling Respiratory exam: Present: normal lung sounds bilaterally. Absent: respiratory distress, wheezes, rales, rhonchi, stridor Cardiovascular Exam: Present: regular rate, normal rhythm, normal heart sounds. Absent: systolic murmur, diastolic murmur, rubs, gallop, clicks GI/Abdominal exam: Present: soft, normal bowel sounds. Absent: distended, tenderness, guarding, rebound, rigid Rectal exam: Present: other (Lower abdomen incision is well-healed, there is surrounding slightly raised erythematous rash) Course Vital Signs 05/23/23 05/23/23 10:58 12:13 Temperature 98.2 F 98.1 F Pulse Rate 92 79 Respiratory 20 18 Rate Blood Pressure 204/96 172/86 O2 Sat by Pulse 99 99 Oximetry Medical Decision Making - Medical Decision Making Was pt. sent in by a medical professional or institution (, PA, WEATHERIZATION CREW LEADER, urgent care, hospital, or fpc...) When possible be specific @ -No Did you speak to anyone other than the patient for history (EMS, parent, family, police, friend...)? What history was obtained from this source @ -No Did you review nursing and triage notes (agree or disagree)? Why? @ -I reviewed and agree with nursing and triage notes Were old charts reviewed (outside hosp., previous admission, EMS record, old EKG, old radiological studies, urgent care reports/EKG's, fpc records)? Report findings @ -No old charts were reviewed Differential Diagnosis (chest pain, altered mental status, abdominal pain women, abdominal pain men, vaginal bleeding, weakness, fever, dyspnea, syncope, headache, dizziness, GI bleed, back pain, seizure, CVA, palpatations, mental health, musculoskeletal)? @ -Dermatitis, cellulitis EKG interpreted by me (3pts min.). @ -None X-rays interpreted by me (1pt min.). @ -None done CT interpreted by me (1pt min.). @ -None done U/S interpreted by me (1pt. min.). @ -None done What testing was considered but not performed or refused? (CT, X-rays, U/S, labs)? Why? @ -None What meds were considered but not given or refused? Why? @ -None Did you discuss the management of the patient with other professionals (professionals i.e. , PA, WEATHERIZATION CREW LEADER, lab, RT, psych nurse, director of social media marketing, full stack software developer, teacher, promotions officer, medical case worker)? Give summary @ -No Was smoking cessation discussed for >3mins.? @ -No Was critical care preformed (if so, how long)? @ -No Were there social determinants of health that impacted care today? How? (Homelessness, low income, unemployed, alcoholism, drug addiction, transportation, low edu. Level, literacy, decrease access to med. care, skilled nursing, rehab)? @ -No Was there de-escalation of care discussed even if they declined (Discuss DNR or withdrawal of care, Hospice)? DNR status @ -No What co-morbidities impacted this encounter? (DM, HTN, Smoking, COPD, CAD, Cancer, CVA, ARF, Chemo, Hep., AIDS, mental health diagnosis, sleep apnea, morbid obesity)? @ -None Was patient admitted / discharged? Hospital course, mention meds given and route , prescriptions, significant lab abnormalities, going to OR and other pertinent info. @ -Discharge patient has ALLERGIC dermatitis will be given steroid cream would discuss proper washing, drying and use of powders protect against moisture. Undiagnosed new problem with uncertain prognosis? @ -No Drug Therapy requiring intensive monitoring for toxicity (Heparin, Nitro, Insulin, Cardizem)? @ -No Were any procedures done? @ -No Diagnosis/symptom? @ -Dermatitis Acute, or Chronic, or Acute on Chronic? @ -Acute Uncomplicated (without systemic symptoms) or Complicated (systemic symptoms)? @ -Uncomplicated Side effects of treatment? @ -No Exacerbation, Progression, or Severe Exacerbation? @ -No Poses a threat to life or bodily function? How? (Chest pain, [place], [place], pneumonia, PE, COPD, DKA, ARF, appy, cholecystitis, CVA, Diverticulitis, Homicidal, Suicida l, threat to staff... and all critical care pts) @ -No Disposition Clinical Impression: Dermatitis Disposition: HOME SELF-CARE Condition: Stable Instructions (If sedation given, give patient instructions): Dermatitis (ED) Additional Instructions: Please return to the Emergency Department if symptoms worsen or any other concerns. Prescriptions: Triamcinolone 0.1% Cream [Kenalog 0.1% Cream] 1 applicatio TOPICAL BID #30 gram Is patient prescribed a controlled substance at d/c from ED?: No Referrals: Neal Terry MD [Primary Care Provider] - 1-2 days Time of Disposition: 11:18
[2023-05-23 12:18] VITALS: BP 172/86; PULSE 79; RESP 18; TEMP 98.1
== END 2023-05-23 12:14 | disposition home or self-care (01) ==
LOC: EC 10:54
DX: L30.9 Dermatitis, unspecified (principal); Z91.030 Bee allergy status
CPT/HCPCS: 99282; J8540 ×2